=== PATIENT | female | born 1995 | race Caucasian/White ===

== ENCOUNTER → 2016-09-03 | Day surgery (SDC) | payer OTHER ==
[~2016-09-03] MED LIST: HYDROmorphone 2 MG/ML VIAL IV PRN; IV RINGERS,LACTATED 1000ML 1,000 ML IV ONE; IV RINGERS,LACTATED 1000ML 1,000 ML IV SCH; LIDOCAINE 1% 1 ML SYRINGE. ID PRN; LIDOCAINE 2% PF Vial for OR 5 ML VIAL. ONE; MORPHINE SULFATE 2 MG/ML DISP.SYRIN. IV PRN; MULT-208 PO; ONDANSETRON PF 4 MG/2 ML VIAL. IV PRN; PROCHLORPERAZINE 10 MG/2 ML VIAL. IV PRN; PROPOFOL 40 ML IV ONE; fentaNYL PF VIAL 100 MCG/2 ML VIAL IV PRN
[2016-09-03 07:55] VITALS: BP 113/59
[2016-09-03 08:23] LABS: NEG OBC UR NEG; POS OBC UR POS
--- NOTE | 2016-09-05 13:44 | PATHOLOGY ---
PATHOLOGY REPORT * * * * * * * * FINAL DIAGNOSIS: A. Gastric antral biopsy: - Mild superficial chronic gastritis. - Vegetable material. B. Duodenal biopsy: - No significant pathologic abnormalities. COMMENT: Sections of the gastric biopsy reveal segments of gastric body mucosa showing congestion and superficial mild chronic inflammation. There are two lymphoid aggregates present within the base of the mucosa. There are also segments of vegetable material. An immunoperoxidase stain for Helicobacter is obtained. No Helicobacter organisms are identified. Sections of the duodenal biopsy reveal segments of duodenal and small intestine mucosa. Where best oriented, the mucosal villi appear normal and show no sprue-like changes or significant inflammatory changes. (JPM:mgr; 09/05/2016) Special Stain Performed: Immunoperoxidase stain for Helicobacter (A1) REPORT ELECTRONICALLY SIGNED BY: Reginald Colvin M.D. DATE/TIME: 09/05/2016 13:43 * * * * * * * * GROSS PATHOLOGY: A. Received in formalin labeled "Franky Castellanos, antral BX for H. pylori," are 4 segments of greco soft tissue measuring 1.5 x 0.2 x 0.2 cm in aggregate dimensions and ranging from 0.2 to 0.6 cm in maximum dimension. The specimen is submitted entirely in cassette A1. B. Received in formalin labeled "Franky Castellanos, duodenal BX rule out celiac," are 7 segments of greco soft tissue measuring 2.7 x 0.2 x 0.2 cm in aggregate dimensions and ranging from 0.2 to 0.5 cm in maximum dimension. The specimen is submitted entirely in cassette B1. (KATIE; 09/04/2016) INITIAL CPT CODE(S): A; 15457, 33569 B; 90765 Professional services performed by [email or web address] at [address] [address] Technical services performed by [facility] at [address] [place] [address], [address], [place] [address]. SPECIMEN(S) RECEIVED: A.Antral biopsy` B.Duodenal CLINICAL HISTORY: Abdominal pain PATIENT: FRANKY CASTELLANOS /AGE: 103/09/1995 (Age: 21) PATIENT #: [id number] ALT CASE #: SPECIMEN COLLECTION DATE: 09/03/2016 SPECIMEN RECEIVED DATE: 09/03/2016 [facility] - [id number] [address] - PHONE: [phone] * * * END OF REPORT * * *
== END | disposition home or self-care (01) ==
LOC: ENDOS 05:40
PROVIDERS: ATTEND Internal Medicine Gastroenterology
DX: K29.50 Unspecified chronic gastritis without bleeding (principal); K31.89 Other diseases of stomach and duodenum; T18.2XXA Foreign body in stomach, initial encounter; F41.9 Anxiety disorder, unspecified; F32.9 Major depressive disorder, single episode, unspecified; Z98.51 Tubal ligation status; Z91.041 Radiographic dye allergy status; Z91.040 Latex allergy status
CPT/HCPCS: 43239; 81025; J2704